=== PATIENT | female | born 1965 | race Caucasian/White ===

== ENCOUNTER → 2018-05-06 | Outpatient (CLI) | payer BC ==
[2014-03-07 08:20] VITALS: BP 120/81
[~2018-05-06] MED LIST: CELE200C PO; CETI10TA22 PO; OMEP40CA5 PO; SIMV20TA3 PO; VALS40TA2 PO
--- NOTE | 2018-05-06 15:52 | KCIC ---
EXAM: Right elbow, 3 views. HISTORY: Pain. COMPARISON: None. FINDINGS: 3 views of the right elbow are obtained. There is no fracture, dislocation or subluxation. There is slight osseous excrescence along the lateral epicondyle. There is no joint effusion. IMPRESSION: No acute osseous finding. Electronically signed by: Lexie Delgado MD (05/06/2018 3:48 PM) [facility]
== END | disposition home or self-care (01) ==
LOC: KCIC 15:32
PROVIDERS: ATTEND Family Medicine
DX: M25.521 Pain in right elbow (principal)
CPT/HCPCS: 73080

== ENCOUNTER → 2019-02-03 | Outpatient (CLI) | payer BC ==
[2014-03-07 08:20] VITALS: BP 120/81
[~2019-02-03] MED LIST changes: +OMEP40CA45 PO; -OMEP40CA5 PO; +SIMV20TA18 PO; -SIMV20TA3 PO
--- NOTE | 2019-02-03 10:42 | KCIC ---
SHOULDER 2+V LEFT 02/03/2019 12:00 AM INDICATION: Acute left shoulder pain COMPARISON: None available. TECHNIQUE: 3 views of the left shoulder are provided. FINDINGS: There is no acute fracture or dislocation. Bone mineralization is within normal limits. Joint spaces are maintained. Regional soft tissues are within normal limits. There is no soft tissue gas or osseous erosion. IMPRESSION: No acute fracture or dislocation. Electronically signed by: Torie Arteaga MD (02/03/2019 10:39 AM) [facility]
== END | disposition home or self-care (01) ==
LOC: KCIC 09:54
PROVIDERS: ATTEND Family Medicine
DX: M25.512 Pain in left shoulder (principal)
CPT/HCPCS: 73030

== ENCOUNTER 2019-04-18 06:46 | Day surgery (SDC) | payer BC ==
[~2019-04-18] VITALS: Ht 162.6 cm; Wt 94.0 kg
[~2019-04-18 06:46] MED LIST changes: +DEXAMETHASONE SOD PHOS 4 MG/ML VIAL ONE; +LIDOCAINE 2% PF 5 ML VIAL. ONE; +ONDANSETRON PF 4 MG/2 ML VIAL. ONE; +PROPOFOL 20 ML IV ONE; +ROCURONIUM 50 MG/5 ML VIAL. ONE
[2019-04-18] MEDS ORDERED: HYDROmorphone 2 MG/ML VIAL IV PRN (07:00)
[2019-04-18] MEDS ORDERED: MORPHINE SULFATE 2 MG/ML VIAL. IV PRN (07:00)
[2019-04-18] MEDS ORDERED: ONDANSETRON PF 4 MG/2 ML VIAL. IV PRN (07:00)
[2019-04-18] MEDS ORDERED: PROCHLORPERAZINE 10 MG/2 ML VIAL. IV PRN (07:00)
[2019-04-18] MEDS ORDERED: fentaNYL PF VIAL 100 MCG/2 ML VIAL IV PRN ×2 (07:00)
[2019-04-18] MEDS ORDERED: IV RINGERS,LACTATED 1000ML 1,000 ML IV SCH (07:00)
[2019-04-18] MEDS ORDERED: EPINEPHrine VIAL 30 MG/30 ML VIAL ONE (07:14)
[2019-04-18] MEDS ORDERED: OXYC1TAB19 PO (07:21)
[2019-04-18] MEDS ORDERED: DEXAMETHASONE SOD PHOS 20 MG/5 ML VIAL. ONE (07:29)
[2019-04-18] MEDS ORDERED: BUPIVACAINE MPF 0.5% 30 ML VIAL. ONE (07:29)
[2019-04-18] MEDS ORDERED: EPINEPHrine 1 MG/ML VIAL ONE (07:29)
[2019-04-18] MEDS ORDERED: MIDAZOLAM HCL/PF 2 MG/2 ML VIAL. ONE (07:29)
[2019-04-18] MEDS ORDERED: LIDOCAINE 1% PF 2 ML VIAL. ONE (07:30)
[2019-04-18] MEDS ORDERED: SEVOFLURANE 61 TO 120 MINUTES. IH ONE (07:46)
[2019-04-18] MEDS ORDERED: ceFAZolin 2GM PREMIX 2 GM/50 ML BAG IV ONE (08:00)
[2019-04-18] MEDS ORDERED: KETOROLAC 30 MG/ML VIAL. ONE (08:17)
[2019-04-18] MEDS ORDERED: PHENYLEPHRINE in 0.9% NACL PF 1 MG/10 ML SYRINGE. IV ONE (08:20)
[2019-04-18] MEDS ORDERED: ePHEDrine PF IN SALINE 50 MG/10 ML SYRINGE. IV ONE (08:32)
[2019-04-18] MEDS ORDERED: oxyCODONE/APAP 7.5/325 1 TAB TABLET PO ONE (09:15)
[2019-04-18 10:00] VITALS: BP 147/82
--- NOTE | 2019-04-18 10:21 | DISCH ---
DISCHARGE INSTRUCTIONS Condition on Discharge Condition on Discharge: Stable Activity After Discharge Activity Instructions for Disc: Other, see below (immediate range of motion of the shoulder as tolerated) Weight Bearing Status after Di: Other, see below (5 pound elbow flexion limit for the first 6 weeks) Diet after Discharge Diet after Discharge: Regular Wound Incision Care Wound/Incision Care: Change dressing (remove dressing in 2 days may then shower no soaking until reevaluated in clinic) Community/Resources/Services Services at Discharge: PT EVALUATE & TREAT (prescription written for active and passive range of motion advancing to strengthening as tolerated 5 pound lifting limit to elbow flexion for for 6 weeks) Contacting the after DC Call your doctor for: Concerns you may have Follow-Up Follow up with: Dr. Romano 7-10 days ANTONIETA ROMANO MD Apr 18, 2019 10:20
--- NOTE | 2019-04-18 13:47 | PDOC4 ---
Operative Note Operative Note Date of surgery: 04/18/2019 Preoperative diagnosis: Superior labral tear left shoulder Postoperative diagnosis: Same with biceps anchor involvement and anterior inferior and posterior labral tears with grade 3 chondromalacia central humeral head and partial undersurface tear of supraspinatus and infraspinatus Operative procedure: Left shoulder arthroscopy biceps tenodesis debridement of partial-thickness rotator cuff tear anterior inferior and posterior labral tears Surgeon: Juan Antonio Assist: Scott Kendall respiratory care assistant Anesthesia: Gen. plus interscalene block Estimated blood loss: 5 mL Complications: None Operative indications: Please see my orthopedic clinic note for detailed operative indications and note that she did have painful clicking in the shoulder and superior labral tear was noted on MRI and I talked with her specifically about treatment of the superior labrum and likely biceps tenodesis versus repair and addressing any other pathology that is present. We talked about the expected restrictions based on the above procedure but those could change based on any further treatment instituted we also covered the possibility of continued pain nonhealing infection nerve or blood vessel damage medical or other anesthetic complications among others she wishes to proceed with surgical evaluation and treatment. Operative text: Patient was identified procedure verified patient placed in the supine position on the operating table. After adequate amounts of general anesthesia plus a pre-existing scalene block were obtained she was placed decubitus side up all bony prominences were well-padded and the left shoulder was prepped and draped in standard sterile fashion. After timeout was performed patient procedure identified and verified she was examined under anesthesia found to have full range of motion no instability and was placed in the arthroscopic arm santoyo with a total of 10 pounds of traction. Standard posterior portal was established anterior portal established using spinal needle localization and the shoulder joint was systematically examined. She was noted to have a type II SLAP tear with involvement of the biceps anchor and an undersurface tear of the supraspinatus and infraspinatus insertion which were debrided back to their stable tissue involving approximately 15% of the rotator cuff footprint she had a normal bare area of the humerus and grade 3 chondromalacia over the central aspect of the humeral head and glenoid cartilage was well-maintained she did have degenerative tears of the anterior-inferior labrum and posterior labrum both of which were debrided back to stable tissue with arthroscopic shaver and further with bipolar electrocautery. I elected to perform a biceps tenodesis and the biceps tendon was tagged and cut and the superior labrum further debrided to stable tissue with the bipolar electrocautery. Tendon was retrieved through the anterior portal and biceps tenodesis was carried out with the [employer] 9 mm peek biceps tenodesis bolt after drilling to 7 mm and whip stitching and appropriately tensioning the remaining tendon it was well seated and tensioned. Portals were then closed with buried Vicryl subcuticular Monocryl Steri-Strips Mastisol and sterile dressings patient was placed in a sling returned recovery room stable condition having tolerated procedure well. Scott cabrales was present for the procedure and assisted in the positioning an technical aspects of the procedure including skin closure ANTONIETA BLOOM MD Apr 18, 2019 13:47
== END 2019-04-18 10:30 | disposition home or self-care (01) ==
LOC: SURG 06:46
PROVIDERS: ATTEND Orthopaedic Surgery
DX: M75.112 Incomplete rotator cuff tear or rupture of left shoulder, not specified as traumatic (principal); M24.112 Other articular cartilage disorders, left shoulder; M66.822 Spontaneous rupture of other tendons, left upper arm; M94.212 Chondromalacia, left shoulder; I10 Essential (primary) hypertension; K21.9 Gastro-esophageal reflux disease without esophagitis; K57.30 Diverticulosis of large intestine without perforation or abscess without bleeding
CPT/HCPCS: 29823; 29828; 64415; 81025; A7015; C1713; J0171; J0696; J1100; J1885; J2001; J2250; J2370; J2405; J2704; J3490